=== PATIENT | female | born 1990 | race Caucasian/White ===

== ENCOUNTER → 2017-01-29 | Outpatient (CLI) | payer OTHER ==
--- NOTE | 2017-01-29 14:33 | US ---
EXAMINATION TYPE: US OB <= 14 wk fetus DATE OF EXAM: 01/29/2017 COMPARISON: NONE CLINICAL HISTORY: Confirm dates Z36. 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 Single intrauterine gestation estimated at 10 weeks 0 days gestation based on the crown-rump lengt h. Cardiac activity measures 172 bpm.
== END | disposition home or self-care (01) ==
LOC: RADUSWWP 13:35
PROVIDERS: ATTEND Obstetrics & Gynecology
DX: Z36 Encounter for antenatal screening of mother (principal); Z3A.10 10 weeks gestation of pregnancy
CPT/HCPCS: 76801

== ENCOUNTER → 2017-01-30 | Outpatient (CLI) | payer OTHER ==
[2017-01-30 14:39] LABS: CH 30.3; CHCM 32.2; HCT 38.6 % (34.0-46.0); HDW 1.96; HGB 12.6 gm/dL (11.4-16.0); MCH 30.9 pg (25.0-35.0); MCHC 32.6 g/dL (31.0-37.0); MCV 94.6 fL (80.0-100.0); Mean Platelet Volume 7.2; RBC 4.08 m/uL (3.80-5.40); WBC 11.4 k/uL (3.8-10.6)
[2017-01-30 14:52] LABS: Glucose 70 mg/dL (74-99); Non-African American GFR(MDRD) >60 (>60 ml/min/1.73 sqM)
[2017-01-30 15:22] LABS: Hepatitis B Surface Ag Index 0.07
== END | disposition home or self-care (01) ==
LOC: LABWHC1 14:02
PROVIDERS: ATTEND Obstetrics & Gynecology
DX: Z34.91 Encounter for supervision of normal pregnancy, unspecified, first trimester (principal); Z3A.00 Weeks of gestation of pregnancy not specified
CPT/HCPCS: 36415; 82565; 82947; 85027; 86762; 86780; 86850; 86900; 86901; 87340

== ENCOUNTER 2021-05-13 08:42 | Emergency (ER) | payer OTHER ==
[2021-05-13 08:49] VITALS: BP 123/79; PULSE 96; RESP 18; TEMP 98.4
[2021-05-13] MEDS ORDERED: FLUORESCEIN STRIPS 1 MG STRIP LEFT EYE ONE (09:02)
[2021-05-13] MEDS ORDERED: PROPARACAINE 0.5% OPHTH DROPS 15 ML BTL BOTH EYES STA (09:06)
[2021-05-13] MEDS ORDERED: KETOTIFEN 0.025% OPHTH DROPS 5 ML BTL RIGHT EYE STA (09:10)
[2021-05-13] MEDS ORDERED: TOBRAMYCIN 0.3% OPHTH DROPS 5 ML BTL RIGHT EYE STA (09:10)
--- NOTE | 2021-05-13 09:12 | ED ---
Eye Problem HPI - General Chief complaint: Eye Problems Stated complaint: eye issues Time Seen by Provider: 05/13/21 08:51 Source: patient, RN notes reviewed Mode of arrival: ambulatory Limitations: no limitations - History of Present Illness Initial comments: 31-year-old female presents emergency department with chief complaint of right eye irritation. Patient states she had some irritation other day from his and some mascara. Patient states that she started having worsening symptoms morning no blurred vision states is swollen there is mild irritation mild discomfort though any contacts or glasses. Patient denies any fevers or chills no trauma - Related Data Allergies Allergy/AdvReac Type Severity Reaction Status Date / Time No Known Allergies Allergy Verified 05/13/21 08:49 Review of Systems ROS Statement: Those systems with pertinent positive or pertinent negative responses have been documented in the HPI. ROS Other: All systems not noted in ROS Statement are negative. Past Medical History Past Medical History: No Reported History History of Any Multi-Drug Resistant Organisms: None Reported Past Surgical History: No Surgical Hx Reported Past Psychological History: No Psychological Hx Reported Smoking Status: Vaper Past Alcohol Use History: None Reported Past Drug Use History: None Reported General Exam Limitations: no limitations General appearance: alert, in no apparent distress Head exam: Present: atraumatic, normocephalic, normal inspection Eye exam: Present: PERRL, EOMI, conjunctival injection (Mild chemotic sclera on the right). Absent: normal appearance, scleral icterus, periorbital swelling Pupils: Present: other (Patient had no fluorescein uptake, no foreign body n oted) ENT exam: Present: normal exam, normal oropharynx, mucous membranes moist Neck exam: Present: normal inspection, full ROM. Absent: tenderness, meningismus, lymphadenopathy Respiratory exam: Present: normal lung sounds bilaterally. Absent: respiratory distress, wheezes, rales, rhonchi, stridor Course Vital Signs 05/13/21 08:45 Temperature 98.4 F Pulse Rate 96 Respiratory 18 Rate Blood Pressure 123/79 O2 Sat by Pulse 97 Oximetry Medical Decision Making - Medical Decision Making Patient has mild conjunctivitis on the right with some chemosis. Patient was given zaditor and Tobrex will be discharged in stable condition. Disposition Clinical Impression: Conjunctivitis, Chemosis of conjunctiva Disposition: HOME SELF-CARE Condition: Stable Instructions (If sedation given, give patient instructions): Eye Lubricant (Into the eye) Additional Instructions: Please return to the Emergency Department if symptoms worsen or any other concerns. Use Tobrex eyedrops 1 drop every 4 hours for 5 days., Use Zaditor twice daily Is patient prescribed a controlled substance at d/c from ED?: No Referrals: None,Stated [Primary Care Provider] - 1-2 days Cindy Cohen MD [STAFF PHYSICIAN] - 1-2 days Time of Disposition: 09:12
[2021-05-13] MEDS ORDERED: PROPARACAINE 0.5% OPHTH DROPS 15 ML BTL BOTH EYES SCH (09:15)
== END 2021-05-13 09:48 | disposition home or self-care (01) ==
LOC: EC 08:42
DX: H10.9 Unspecified conjunctivitis (principal); H11.421 Conjunctival edema, right eye
CPT/HCPCS: 99283

== ENCOUNTER → 2021-12-19 | Outpatient (CLI) | payer OTHER ==
--- NOTE | 2021-12-19 09:57 | MM ---
Reason for exam: clinical finding. Baseline mammogram. History: Taking hormonal contraceptives for 4 years. Indicated problem(s): palpable abnormality in the right breast. Physical Findings: A clinical breast exam by your physician is recommended on an annual basis and results should be correlated with mammographic findings. MG Diagnostic Mammo w CAD ROBERT Bilateral CC and MLO view(s) were taken. The breast tissue is extremely dense which could obscure a lesion on mammography. Finding: There is a 23 mm equal density (isodense), obscured round mass located 4 cm from the nipple in the upper outer quadrant, middle position of the left breast. Results were given to the patient verbally at the time of the exam. ASSESSMENT: Incomplete: need additional imaging evaluation, BI-RAD 0 RECOMMENDATION: Ultrasound of both breasts.
--- NOTE | 2021-12-19 10:00 | USB ---
Reason for exam: clinical finding. History: Taking hormonal contraceptives for 4 years. Physical Findings: A clinical breast exam by your physician is recommended on an annual basis and results should be correlated with mammographic findings. US Breast Limited BILAT Technologist: Henny Espinoza Right limited breast ultrasound including focal area of concern, retroareolar and axilla demonstrates no cystic or solid lesion seen. Left limited breast ultrasound including focal area of concern, retroareolar and axilla demonstrates no cystic or solid lesion seen. Results were given to the patient verbally at the time of the exam. ASSESSMENT: Negative, BI-RAD 1 RECOMMENDATION: Routine screening mammogram of both breasts at age 34. Manage patient on a clinical basis.
== END | disposition home or self-care (01) ==
LOC: RADMAMWWP 08:38
PROVIDERS: ATTEND Obstetrics & Gynecology
DX: R92.8 Other abnormal and inconclusive findings on diagnostic imaging of breast (principal)
CPT/HCPCS: 77066

== ENCOUNTER 2022-08-05 12:15 | Emergency (ER) | payer OTHER ==
[2022-08-05] MEDS ORDERED: SODIUM CHLORIDE 0.9% 2,000 ML IV STA (15:21)
[2022-08-05 15:58] VITALS: BP 116/73; PULSE 98; RESP 16
[2022-08-05 15:59] LABS: Basophils % (A) 0 %; Eosinophils # (A) 0.1 k/uL (0-0.7); Eosinophils % (A) 1 %; HCT 35.1 % (34.0-46.0); HGB 12.5 gm/dL (11.4-16.0); Lymphocytes # (A) 0.9 k/uL (1.0-4.8); Lymphocytes % (A) 9 %; MCH 31.9 pg (25.0-35.0); MCHC 35.5 g/dL (31.0-37.0); Mean Platelet Volume 8.1; Monocytes # (A) 0.3 k/uL (0-1.0); Monocytes % (A) 4 %; Neutrophils % (A) 84 %; Platelet Count 207 k/uL (150-450); RDW 13.2 % (11.5-15.5); WBC 9.5 k/uL (3.8-10.6)
--- NOTE | 2022-08-05 16:00 | ED ---
Nausea/Vomiting/Diarrhea HPI - General Chief complaint: Nausea/Vomiting/Diarrhea Stated complaint: vomiting - 25 wks - to be seen in er Time Seen by Provider: 08/05/22 15:15 Source: patient, RN notes reviewed Mode of arrival: ambulatory Limitations: no limitations - History of Present Illness Initial comments: 32-year-old female presents emergency Department chief complaint of nausea vomiting. Patient states that she's had significant amount of vomiting states that she cannot keep coming down states she hasn't she has barely had a piece of toast this morning. Patient presented to labor and delivery in which she states she is not taking care of there they told her she probably just has the flu incentive emergency department. patient states that she has felt her baby kick. patient denies any dysuria but states she's had decreased urine output feels dehydrated. no reports of fever, does complain of chills. patient child at home has similar symptoms patient is currently 25 weeks with no complaints of vaginal bleeding or vaginal discharge. - Related Data Allergies Allergy/AdvReac Type Severity Reaction Status Date / Time No Known Allergies Allergy Verified 08/05/22 12:28 Review of Systems ROS Statement: Those systems with pertinent positive or pertinent negative responses have been documented in the HPI. ROS Other: All systems not noted in ROS Statement are negative. Past Medical History Past Medical History: No Reported History History of Any Multi-Drug Resistant Organisms: None Reported Past Surgical History: No Surgical Hx Reported Past Psychological History: No Psychological Hx Reported Smoking Status: Vaper Past Alcohol Use History: None Reported Past Drug Use History: None Reported General Exam Limitations: no limitations General appearance: alert, in no apparent distress Head exam: Present: atraumatic, normocephalic, normal inspection Eye exam: Present: normal appearance, PERRL, EOMI. Absent: scleral icterus, conjunctival injection, periorbital swelling ENT exam: Present: normal exam, normal oropharynx, mucous membranes moist Neck exam: Present: normal inspection, full ROM. Absent: tenderness, meningismus, lymphadenopathy Respiratory exam: Present: normal lung sounds bilaterally. Absent: respiratory distress, wheezes, rales, rhonchi, stridor Cardiovascular Exam: Present: regular rate, normal rhythm, normal heart sounds. Absent: systolic murmur, diastolic murmur, rubs, gallop, clicks GI/Abdominal exam: Present: soft, normal bowel sounds. Absent: distended, tenderness, guarding, rebound, rigid Course Vital Signs 08/05/22 12 12:25 15:57 Temperature 97.8 F Pulse Rate 95 98 Respiratory 20 16 Rate Blood Pressure 109/55 116/73 O2 Sat by Pulse 99 100 Oximetry Medical Decision Making - Medical Decision Making 32-year-old presented emergency department for nausea vomiting during . Patient is well hydrated, given 2 L of fluid, labwork Any Significant Findings. Patient Did Have Heart Tones within Normal Limits. Patient Discharged Stable Condition with Close Follow-Up. - Lab Data Result diagrams: 08/05/22 15:51 08/05/22 15:51 Lab Results 08/05/22 08/05/22 08/05/22 Range/Units 12:31 12:31 15:51 WBC 9.5 (3.8-10.6) k/uL RBC 3.90 (3.80-5.40) m/uL Hgb 12.5 (11.4-16.0) gm/dL Hct 35.1 (34.0-46.0) % MCV 90.0 (80.0-100.0) fL MCH 31.9 (25.0-35.0) pg MCHC 35.5 (31.0-37.0) g/dL RDW 13.2 (11.5-15.5) % Plt Count 207 (150-450) k/uL MPV 8.1 Neutrophils % 84 % Lymphocytes % 9 % Monocytes % 4 % Eosinophils % 1 % Basophils % 0 % Neutrophils # 8.0 H (1.3-7.7) k/uL Lymphocytes # 0.9 L (1.0-4.8) k/uL Monocytes # 0.3 (0-1.0) k/uL Eosinophils # 0.1 (0-0.7) k/uL Basophils # 0.0 (0-0.2) k/uL Sodium (137-145) mmol/L Potassium (3.5-5.1) mmol/L Chloride (98-107) mmol/L Carbon Dioxide (22-30) mmol/L Anion Gap mmol/L BUN (7-17) mg/dL Creatinine (0.52-1.04) mg/dL Est GFR (CKD-EPI)AfAm (>60 ml/min/1.73 sqM) Est GFR (CKD-EPI)NonAf (>60 ml/min/1.73 sqM) Glucose (74-99) mg/dL Calcium (8.4-10.2) mg/dL Total Bilirubin (0.2-1.3) mg/dL AST (14-36) U/L ALT (4-34) U/L Alkaline Phosphatase (38-126) U/L Total Protein (6.3-8.2) g/dL Albumin (3.5-5.0) g/dL Coronavirus (PCR) Not Detected (Not Detectd) Influenza Type A RNA Not Detected (Not Detectd) Influenza Type B (PCR) Not Detected (Not Detectd) 08/05/22 Range/Units 15:51 WBC (3.8-10.6) k/uL RBC (3.80-5.40) m/uL Hgb (11.4-16.0) gm/dL Hct (34.0-46.0) % MCV (80.0-100.0) fL MCH (25.0-35.0) pg MCHC (31.0-37.0) g/dL RDW (11.5-15.5) % Plt Count (150-450) k/uL MPV Neutrophils % % Lymphocytes % % Monocytes % % Eosinophils % % Basophils % % Neutrophils # (1.3-7.7) k/uL Lymphocytes # (1.0-4.8) k/uL Monocytes # (0-1.0) k/uL Eosinophils # (0-0.7) k/uL Basophils # (0-0.2) k/uL Sodium 133 L (137-145) mmol/L Potassium 3.6 (3.5-5.1) mmol/L Chloride 105 (98-107) mmol/L Carbon Dioxide 20 L (22-30) mmol/L Anion Gap 8 mmol/L BUN 6 L (7-17) mg/dL Creatinine 0.36 L (0.52-1.04) mg/dL Est GFR (CKD-EPI)AfAm >90 (>60 ml/min/1.73 sqM) Est GFR (CKD-EPI)NonAf >90 (>60 ml/min/1.73 sqM) Glucose 76 (74-99) mg/dL Calcium 8.5 (8.4-10.2) mg/dL Total Bilirubin 0.5 (0.2-1.3) mg/dL AST 29 (14-36) U/L ALT 25 (4-34) U/L Alkaline Phosphatase 94 (38-126) U/L Total Protein 6.3 (6.3-8.2) g/dL Albumin 3.7 (3.5-5.0) g/dL Coronavirus (PCR) (Not Detectd) Influenza Type A RNA (Not Detectd) Influenza Type B (PCR) (Not Detectd) Disposition Clinical Impression: Gastroenteritis, Dehydration Disposition: HOME SELF-CARE Condition: Stable Instructions (If sedation given, give patient instructions): Acute Nausea and Vomiting (ED) Additional Instructions: Please return to the Emergency Department if symptoms worsen or any other concerns. Is patient prescribed a controlled substance at d/c from ED?: No Referrals: Maximino Paul MD [Primary Care Provider] - 1-2 days Time of Disposition: 16:20
[2022-08-05 16:14] LABS: ALT 25 U/L (4-34); AST 29 U/L (14-36); African American GFR (CKD) >90 (>60 ml/min/1.73 sqM); Albumin 3.7 g/dL (3.5-5.0); Alkaline Phosphatase 94 U/L (38-126); Anion Gap 8 mmol/L; Blood Urea Nitrogen 6 mg/dL (7-17); Calcium 8.5 mg/dL (8.4-10.2); Carbon Dioxide 20 mmol/L (22-30); Chloride 105 mmol/L (98-107); Glucose 76 mg/dL (74-99); Non-African American GFR(CKD) >90 (>60 ml/min/1.73 sqM); Potassium 3.6 mmol/L (3.5-5.1); Sodium 133 mmol/L (137-145); Total Bilirubin 0.5 mg/dL (0.2-1.3); Total Protein 6.3 g/dL (6.3-8.2)
[2022-08-05] MEDS ORDERED: ONDANSETRON 4 MG ODT STARTER PACK 2 TAB BTL PO STA (16:18)
[2022-08-05 16:31] VITALS: TEMP 97.9
== END 2022-08-05 16:31 | disposition home or self-care (01) ==
LOC: EC 12:15
DX: O99.612 Diseases of the digestive system complicating pregnancy, second trimester (principal); O99.332 Smoking (tobacco) complicating pregnancy, second trimester; K52.9 Noninfective gastroenteritis and colitis, unspecified; E86.0 Dehydration; F17.290 Nicotine dependence, other tobacco product, uncomplicated; Z3A.25 25 weeks gestation of pregnancy
CPT/HCPCS: 99284; 96360; 36415; 80053; 85025; 87502; 87635; S0119

== ENCOUNTER → 2022-09-18 | Outpatient (CLI) | payer OTHER ==
[2022-09-18 10:37] LABS: HCT 36.6 % (37.2-46.3); HGB 11.9 g/dL (12.0-15.0); MCH 30.3 pg (27.0-32.0); MCHC 32.5 g/dL (32.0-37.0); MCV 93.1 fL (80.0-97.0); Mean Platelet Volume 11.1 fL (9.5-12.2); NRBC Per 100 WBC 0 /100 WBCS (0.0-0.0); Platelet Count 241 X 10*3/uL (140-440); RBC 3.93 X 10*6/uL (4.10-5.20); RDW 13.2 % (11.5-14.5); WBC 13.69 X 10*3/uL (4.50-10.00)
== END | disposition home or self-care (01) ==
LOC: LABWHC1 07:14
PROVIDERS: ATTEND Obstetrics & Gynecology
DX: Z34.92 Encounter for supervision of normal pregnancy, unspecified, second trimester (principal); Z3A.00 Weeks of gestation of pregnancy not specified
CPT/HCPCS: 36415; 82950; 85027

== ENCOUNTER 2022-11-15 11:02 | Outpatient (CLI) | payer OTHER ==
[2022-11-15 12:16] VITALS: BP 127/76; PULSE 96; RESP 16; TEMP 97
--- NOTE | 2022-12-20 12:29 | P.MSEPDOC ---
Presenting Problems - Arrival Data Date of Arrival on Unit: 11/15/22 Time of Arrival on Unit: 11:02 Mode of Transport: Ambulatory - Complaint OB-Reason for Admission/Chief Complaint: Visual Disturbances Medical History - Information : 3 Para: 1 Term: 1 : 0 Abortions: Spontaneous or Elective: 1 Number of Living Children: 1 - Gestational Age Gestational Age by OLGA LIDIA (wks/days): 39 Weeks and 3 Days Review of Systems - Review of Systems Constitutional: No problems Breast: No problems ENT: No problems Cardiovascular: No problems Respiratory: No problems Gastrointestinal: No problems Genitourinary: No problems Musculoskeletal: No problems Neurological: No problems Skin: No problems Vital Signs - Temperature Temperature: 97.0 F Temperature Source: Temporal Artery Scan - Pulse Apical Pulse Rate: 96 Pulse Assessment Method: Automatic Cuff - Respirations Respiratory Rate: 16 Oxygen Delivery Method: Room Air O2 Sat by Pulse Oximetry: 98 - Blood Pressure Right Arm Blood Pressure: 127/76 Blood Pressure Mean: 93 Blood Pressure Source: Automatic Cuff Medical Screen Scoring - Cervical Exam Dilation (cm): 1 Effacement (%): 50 Station: -2 Membranes: Intact - Uterine Contractions Frequency From (mins): 2 Frequency To (mins): 5 Duration From (seconds): 30 Duration To (seconds): 60 Intensity: Mild Resting: Soft to palpation - Assessment - Baby A Baseline FHR: 130 Heart Rate - NICHD Category: Category I (Normal) NST: Reactive Physician Notification - Physician Notified Physician Notified Date: 11/15/22 Physician Notified Time: 11:30 Physician: Silvia Nevarez Order Received: Yes (discharge home to keep appt tomorrow) Maternal Triage Index - Maternal Triage Index Presenting for scheduled procedure w/no complaint: No - Stat/Priority 1 Stat Priority 1: No - Urgent/Priority 2 Urgent Priority 2: No - Prompt/Priority 3 Prompt Priority 3: No - Non-Urgent/Priority 4 Non-Urgent Priority 4: Yes Criteria Met for Priority 4: Pt states all her symptoms are resolved at present and she is not feeling ctxs Disposition - Disposition OB Disposition: Discharge to home Discharge Date: 11/15/22 Discharge Time: 11:45 I agree with the RN Medical Screening Exam: Yes Physician's MSE Comment: I have neither seen nor examined the patient. Case reviewed; plan agreed upon as documented in EMR&OBIX.: Yes Diagnosis: RELATED CONDITIONS, UNSPECIFIED, THIRD TRIMESTER
== END 2022-11-15 11:45 | disposition home or self-care (01) ==
LOC: FBPOP 11:02
PROVIDERS: ATTEND Obstetrics & Gynecology
DX: Z3A.39 39 weeks gestation of pregnancy (principal); O99.891 Other specified diseases and conditions complicating pregnancy; H53.9 Unspecified visual disturbance
CPT/HCPCS: 59025; G0463; 99215

== ENCOUNTER 2022-11-19 09:30 | Inpatient (IN) | payer OTHER ==
[2022-11-20] MEDS ORDERED: METHYLERGONOVINE 0.2 MG/ML 1 ML AMP IM PRN (07:09)
[2022-11-20] MEDS ORDERED: LIDOCAINE 0.5% (PF) 5 MG/ML (50 ML SDV) SQ PRN (07:09)
[2022-11-20] MEDS ORDERED: TERBUTALINE 1 MG/ML VIAL SQ PRN (07:09)
[2022-11-20] MEDS ORDERED: OXYTOCIN 10 UNIT/ML 1 ML VIAL IM PRN (07:09)
[2022-11-20] MEDS ORDERED: miSOPROStoL 200 MCG TAB PO PRN (07:09)
[2022-11-20] MEDS ORDERED: CARBOPROST TROMETHAMINE 250 MCG/ML 1 ML AMP IM PRN (07:09)
--- NOTE | 2022-11-20 07:09 | P.HPOB ---
History of Present Illness H&P Date: 11/20/22 Chief Complaint: Elective Induction of Laobr Ms. Dimas is a 32 year old at 40 weeks and 1 day with EDC of 11/19/22 by LMP c/w 11 wk US who presents to labor and delivery for medical induction of labor for post-dates. has been uncomplicated. Estimated weight by growth ultrasound at 32 weeks shows the baby in the 60%ile for weight. Obstetric history: 1 FTVD, uncomplicated Maternal serologies: blood type B positive, antibody screen negative, rubella immune, VDRL non-reactive, HBsAg negative, HIV negative, GC negative, CT negative, 1 hour GTT 90, GBS negative. Past Medical History Past Medical History: No Reported History History of Any Multi-Drug Resistant Organisms: None Reported Past Surgical History: No Surgical Hx Reported Smoking Status: Vaper (former) Medications and Allergies Home Medications Medication Instructions Recorded Confirmed Type Aspirin 81 mg PO DAILY 10/20/22 11/15/22 History Vit No.179/Iron/Folic 1 tab PO DAILY 10/20/22 11/15/22 History [ Tablet] Allergies Allergy/AdvReac Type Severity Reaction Status Date / Time No Known Allergies Allergy Verified 11/15/22 12:00 Exam Focused physical exam is performed. This is a healthy-appearing in no apparent distress. Cervical exam is 3 cm dilated, 50% effaced, and -3 station. Assessment and Plan Assessment: 32 year old at 40 weeks and 1 day presenting for medical induction of labor for post-dates. Plan: Admit, NPO, mIVF, begin oxytocin per protocol. Continuous EFM, close monitoring of mother. Time with Patient: Less than 30 (20 minutes)
[2022-11-20] MEDS ORDERED: OXYTOCIN 30 UNITS/500 ML NS 30 UNIT in SALINE 1 500ML.BAG IV SCH ×2 (07:15→16:15)
[2022-11-20] MEDS: LACTATED RINGERS 1,000 ML IV SCH ×3 (07:33→13:11)
[2022-11-20 07:56] LABS: Basophils % (A) 0 %; Eosinophils # (A) 0.2 k/uL (0-0.7); Eosinophils % (A) 1 %; HCT 37.5 % (34.0-46.0); HGB 12.6 gm/dL (11.4-16.0); Lymphocytes # (A) 2.1 k/uL (1.0-4.8); Lymphocytes % (A) 15 %; MCH 30.9 pg (25.0-35.0); MCHC 33.7 g/dL (31.0-37.0); MCV 91.7 fL (80.0-100.0); Monocytes # (A) 0.6 k/uL (0-1.0); Monocytes % (A) 4 %; Neutrophils # (A) 10.3 k/uL (1.3-7.7); Neutrophils % (A) 77 %; Platelet Count 213 k/uL (150-450); RBC 4.09 m/uL (3.80-5.40); RDW 13.1 % (11.5-15.5); WBC 13.4 k/uL (3.8-10.6)
[2022-11-20] MEDS ORDERED: SODIUM CHLORIDE 0.9% 100 ML BAG ONE (11:41)
[2022-11-20] MEDS ORDERED: ROPIVACAINE 5 MG/ML 20 ML AMPULE ONE (11:41)
[2022-11-20] MEDS ORDERED: fentaNYL (PF) 50 MCG/ML 5 ML AMP ONE (11:41)
[2022-11-20] MEDS ORDERED: ROPIVACAINE 100 MG, fentaNYL (PF). 200 MCG in SODIUM CHLORIDE 0.9% 76 ML EPIDURAL ONE (12:41)
[2022-11-20] MEDS ORDERED: ZOLPIDEM 5 MG TAB PO PRN (16:12)
[2022-11-20] MEDS ORDERED: BENZOCAINE/MENTHOL SPRAY 1 GM/SPRAY AEROSOL TOPICAL PRN (16:12)
[2022-11-20] MEDS ORDERED: LANOLIN CREAM 5 GM TUBE TOPICAL PRN (16:12)
[2022-11-20] MEDS ORDERED: diphenhydrAMINE 50 MG/ML 1 ML VIAL IVP PRN ×2 (16:12)
[2022-11-20] MEDS ORDERED: HYDROCORTISONE 2.5% RECTAL CREAM 30 GM TUBE RECTAL PRN (16:12)
[2022-11-20] MEDS ORDERED: SIMETHICONE 80 MG CHEWABLE PO PRN (16:12)
[2022-11-20] MEDS ORDERED: diphenhydrAMINE 50 MG CAP PO PRN (16:12)
[2022-11-20] MEDS ORDERED: diphenhydrAMINE 25 MG CAP PO PRN (16:12)
--- NOTE | 2022-11-20 16:12 | P.PROBDLV ---
Vaginal Delivery Note - . Vaginal Delivery Note: DATE OF SERVICE: 11/20/2022 PROCEDURE: Normal Vaginal Delivery ATTENDING: Dr. Silvia Nevarez MD ESTIMATED BLOOD LOSS: 300 mL FINDINGS: VMI, Apgars 8/9, weight 8#10oz PROCEDURE: Patient was a 32 y/o at 40 weeks and 1 day who presented to labor and delivery for medical induction of labor for post-dates. Oxytocin was started and AROM was undertaken with clear fluid noted. She progressed to complete dilation. She pushed the head effectively. Head delivered and a shoulder dystocia was encountered. Please see the separate shoulder dystocia documentation for a complete discription of the maneuvers used. The infant delivered over an intact perineum. Infant placed on maternal abdomen and bulb suctioned. Cord was clamped and cut after a 30 second delay. Placenta delivered whole with gentle cord traction. Oxytocin was started to facilitate uterine tone. Uterine fundus firm and bleeding minimal upon fundal massage. Perineal inspection revealed a second degree laceration repaired in the usual fashion with 2-0 Vicryl. A rectal exam revealed an intact anal sphincter with no abnormalities. Patient stable .
[2022-11-20] MEDS: IBUPROFEN 600 MG TAB PO PRN (18:37)
[2022-11-20] MEDS: SENNOSIDES-DOCUSATE SODIUM 1 EACH TAB PO SCH (23:28)
[2022-11-20] MEDS: ACETAMINOPHEN TAB 325 MG TAB PO PRN (23:31)
[2022-11-21] MEDS: IBUPROFEN 600 MG TAB PO PRN ×2 (04:19→12:18)
[2022-11-21] MEDS: ACETAMINOPHEN TAB 325 MG TAB PO PRN (06:29)
[2022-11-21 08:18] VITALS: BP 127/67; PULSE 84; RESP 16; TEMP 97.9
[2022-11-21] MEDS: SENNOSIDES-DOCUSATE SODIUM 1 EACH TAB PO SCH (08:18)
[2022-11-21 08:19] LABS: Basophils % (A) 0 %; Eosinophils # (A) 0.1 k/uL (0-0.7); Eosinophils % (A) 1 %; HCT 37.3 % (34.0-46.0); Lymphocytes # (A) 1.7 k/uL (1.0-4.8); Lymphocytes % (A) 13 %; MCH 30.1 pg (25.0-35.0); MCHC 32.2 g/dL (31.0-37.0); MCV 93.4 fL (80.0-100.0); Mean Platelet Volume 9.6; Monocytes # (A) 0.4 k/uL (0-1.0); Monocytes % (A) 3 %; Neutrophils # (A) 10.8 k/uL (1.3-7.7); Neutrophils % (A) 82 %; Platelet Count 246 k/uL (150-450); RDW 13.2 % (11.5-15.5); WBC 13.1 k/uL (3.8-10.6)
--- NOTE | 2022-11-21 08:32 | P.PNOBGVD ---
Subjective - Subjective Principal diagnosis: Vaginal Delivery complicated by shoulder dystocia Interval history: The patient is doing well this morning and had no acute events overnight. She has no complaints this morning. She reports minimal lochia, passing flatus, voiding without difficulty, ambulating, and eating/drinking without nausea or vomiting. She is her without difficulty. She denies chest pain, shortness of breathing, fevers, or chills overnight. She denies pain or swelling in the legs. Patient reports: Reports appetite normal, Reports voiding normally, Reports pain well controlled, Reports ambulating normally [place]: doing well, nursing well Objective - Latest Vital Signs Latest vital signs: Vital Signs Temp Pulse Resp BP BP Pulse Ox 11/21/22 08:00 97.9 F 84 16 127/67 11/21/22 04:00 97.7 F 90 18 114/76 97 11/21/22 00:00 97.6 F 83 16 107/60 97 11/20/22 20:00 97.8 F 95 18 113/62 96 11/20/22 18:05 97.4 F L 91 16 129/58 11/20/22 17:35 102 H 16 120/63 11/20/22 17:05 100 16 126/69 11/20/22 16:50 94 16 147/65 11/20/22 16:35 97.7 F 99 16 127/60 11/20/22 16:20 99 16 123/64 11/20/22 16:05 90 16 127/71 Intake and Output 11/20/22 11/21/22 11/21/22 22:59 06:59 14:59 Intake Total 183.9 740 Output Total 50 Balance 133.9 740 Intake: Intake, IV Titration 183.9 Amount Oxytocin 30 Units/500 ml 183.9 Ns 30 unit In Saline 1 500ml.bag @ Per Protocol IV .Q0M [facility] Rx#:[id number] Oral 740 Output: Output, Quantitative 50 Blood Loss Other: # Voids 1 1 1 - Exam Extremities: Present: normal Abdomen: Present: normal appearance, soft Uterus: Present: normal, firm - Labs Labs: Abnormal Lab Results - Last 24 Hours (Table) 11/21/22 Range/Units 07:56 WBC 13.1 H (3.8-10.6) k/uL Neutrophils # 10.8 H (1.3-7.7) k/uL Assessment and Plan Assessment: 32 year old now day #1 s/p vaginal delivery complicated by shoulder dystocia Plan: Patient meeting all milestones appropriately. Will perform circumcision today. Plan for discharge home in late afternoon after 24 hours .
--- NOTE | 2022-11-21 08:37 | P.DS ---
Providers Date of admission: 11/20/22 06:28 Expected date of discharge: 11/21/22 Attending physician: Silvia Nevarez MD Primary care physician: Stated None Hospital Course: 32 year old now PPD#1 s/p vaginal delivery complicated by small shoulder dystocia. She desires discharge home today. Patient initially presented for medical induction of labor for post-dates. Oxytocin was started and AROM was undertaken for clear fluid. The patient progressed to complete dilation and delivered the . The has no sequelae from the shoulder dystocia. Mom and infant are both doing well today. She desires circumcision for the infant which will be performed today. She is meeting all milestones appropriately. restrictions of pelvic rest for 6 weeks discussed. Patient encouraged to call the office for heavy bleeding, foul smelling vaginal discharge, breast complaints, or any other concerns. She will return to clinic in 6 weeks for visit. Assessment: 32 year old now day #1 s/p vaginal delivery complicated by shoulder dystocia. Patient Condition at Discharge: Good Plan - Discharge Summary New Discharge Prescriptions: No Action Vit No.179/Iron/Folic [ Tablet] 1 tab PO DAILY Aspirin 81 mg PO DAILY Discharge Medication List Aspirin 81 mg PO DAILY 10/20/22 [History] Vit No.179/Iron/Folic [ Tablet] 1 tab PO DAILY 10/20/22 [History] Follow up Appointment(s)/Referral(s): Silvia Nevarez MD [STAFF PHYSICIAN] - 6 Weeks Patient Instructions/Handouts: Your Baby (DC), Expression, Collection and Storage of Breast Milk (DC), How to Increase Your Milk Supply (DC), How to Tell if Your Baby is Getting Enough Breast Milk (DC), Depression (DC), Perineal Care (DC), Bleeding (DC) Discharge Disposition: HOME SELF-CARE
== END 2022-11-21 15:50 | disposition home or self-care (01) | DRG 560 ==
LOC: 4FBP 11-20 06:28
PROVIDERS: ADMIT Obstetrics & Gynecology; ATTEND Obstetrics & Gynecology
PROC: 10E0XZZ Delivery of Products of Conception, External Approach (ICD-10-PCS; principal; 2022-11-20)
PROC: 0KQM0ZZ Repair Perineum Muscle, Open Approach (ICD-10-PCS; 2022-11-20)
PROC: 3E033VJ Introduction of Other Hormone into Peripheral Vein, Percutaneous Approach (ICD-10-PCS; 2022-11-20)
PROC: 10907ZC Drainage of Amniotic Fluid, Therapeutic from Products of Conception, Via Natural or Artificial Opening (ICD-10-PCS; 2022-11-20)
PROC: 4A0HXCZ Measurement of Products of Conception, Cardiac Rate, External Approach (ICD-10-PCS; 2022-11-20)
PROC: 10907ZC Drainage of Amniotic Fluid, Therapeutic from Products of Conception, Via Natural or Artificial Opening (ICD-10-PCS; 2022-11-20)
DX: O66.0 Obstructed labor due to shoulder dystocia (principal); O70.1 Second degree perineal laceration during delivery; O48.0 Post-term pregnancy; Z37.0 Single live birth; Z3A.40 40 weeks gestation of pregnancy; Z79.82 Long term (current) use of aspirin
CPT/HCPCS: 85025; 86850; 86900; 86901